=== PATIENT | male | born 1945 | race American Indian/Alaskan Native ===

== ENCOUNTER 2021-11-26 07:53 | Day surgery (SDC) | payer MEDICARE, OTHER ==
[2021-11-26 08:44] LABS: Basophils # (Auto) 0.1 K/mm3 (0.0-0.1); Basophils % (Auto) 1.1 % (0.0-1.8); Eosinophils # (Auto) 0.1 K/mm3 (0.0-0.4); Hematocrit 43.8 % (35.5-45.6); Hemoglobin 14.1 gm/dl (11.8-15.2); Lymphocytes # (Auto) 1.3 K/mm3 (1.2-5.4); Lymphocytes % (Auto) 29.6 % (13.4-35.0); Mean Corpuscular HGB Conc 32 % (32-34); Mean Corpuscular Volume 88 fl (84-94); Monocytes # (Auto) 0.5 K/mm3 (0.0-0.8); Monocytes % (Auto) 10.9 % (0.0-7.3); Platelet Count 367 K/mm3 (140-440); Red Blood Count 4.99 M/mm3 (3.65-5.03); Red Cell Distribution Width 15.2 % (13.2-15.2)
--- NOTE | 2021-11-26 08:52 | Electrocardiograph Report ---
[facility] Test Date: 2021-11-26 Test Time: 08:40:00 Pat Name: SABINE BELLO Department: Room: Gender: M Seam Presser: GIANCARLO : 1945 Requested By: GURU FERRER Order Number: [id number] Reading MD: Tim Huber Measurements Intervals [place] Rate: 92 P: 48 IA: 161 QRS: -31 QRSD: 88 T: 41 QT: 339 QTc: 420 Interpretive Statements Sinus rhythm Left axis deviation No previous ECG available for comparison Electronically Signed On 11-26-2021 8:52:13 EST by Tim Huber
[2021-11-26 08:55] LABS: INR 0.92 (0.87-1.13)
[2021-11-26] MEDS ORDERED: SODIUM CHLORIDE 0.9% 500 ML 500 ML IV SCH (09:00)
[2021-11-26 09:09] LABS: BUN/Creatinine Ratio 15; Blood Urea Nitrogen 20 mg/dL (9-20); Hemolysis Index 90
[2021-11-26] MEDS ORDERED: HEPARIN/NS 5000 UNIT/500ML 1,000 ML IR ONE (10:28)
[2021-11-26] MEDS ORDERED: HEPARIN 10,000 UNITS/10 ML VIAL ONE (10:28)
[2021-11-26] MEDS ORDERED: fentaNYL 100 MCG/2 ML INJ ONE (10:28)
[2021-11-26] MEDS ORDERED: MIDAZOLAM 2 MG/2 ML INJ ONE (10:28)
[2021-11-26] MEDS ORDERED: NITROGLYCERIN SYRINGE 3 ML ONE (10:29)
[2021-11-26] MEDS ORDERED: LIDOCAINE (2%) 20 MG/1 ML VIAL 20 ML MDV INFILTRATI ONE (10:29)
[2021-11-26] MEDS ORDERED: VERAPAMIL 5 MG/2 ML INJ ONE (10:29)
--- NOTE | 2021-11-26 11:30 | Cardiac Catherization Report ---
DATE OF SERVICE: 11/26/2021 CARDIAC CATHETERIZATION REASON FOR PROCEDURE: Abnormal stress test. PROCEDURES: 1. Left heart catheterization. 2. Selective left and right coronary angiography. 3. Left ventricular angiography. 4. Sedation time start 10:53, end 11:04. DESCRIPTION OF PROCEDURE: The patient was prepped and draped in a sterile fashion after informed consent. The right radial cath site was prepped and draped after negative Quincy's test. The right radial artery was entered using Seldinger technique followed by placement of a 6-Samo[place] hydrophilic sheath. Routine radial cocktail was administered via the sheath. Selective left and right coronary angiography was performed using #3.5 left Stevie and #4 right Stevie. The pigtail catheter was used for left ventricular angiography. The catheters were then removed, sheath removed and hemostasis achieved using a TR band. The patient was returned to the postprocedure unit in stable condition. There were no complications. HEMODYNAMICS: Left ventricular end-diastolic pressure was 16. Ascending aortic pressure 110/60. There was no significant pressure gradient on pullback across the aortic valve. CORONARY ANGIOGRAPHY: The left main coronary artery contained mild luminal irregularities and mild distal narrowing. The left anterior descending artery was notable for mild diffuse calcification of its proximal and mid segments, associated with mild diffuse atherosclerosis. No significant obstructive lesions were noted in either the LAD or its diagonal branches. The circumflex artery was a large system, codominant with the right coronary artery. This vessel and its obtuse marginal and posterior left ventricular branches were free of significant disease. The right coronary artery was a smaller caliber vessel, but terminated in a small posterior descending artery. There was mild diffuse atherosclerosis. We did note a 30-40% stenosis of the mid vessel. There is normal left ventricular systolic function, ejection fraction 60%. CONCLUSION: 1. Mild nonobstructive atherosclerosis as detailed above. No significant obstructive coronary lesions. 2. Well preserved left ventricular systolic function, ejection fraction 60%. RECOMMENDATIONS: Risk factor modification and medical therapy. TID: [id number] RECEIPT: [id number] VANDANA/TYRONE
[2021-11-26] MEDS ORDERED: traMADol 50 MG TAB PO PRN (12:19)
--- NOTE | 2021-11-26 12:21 | Discharge Summary ---
Short Stay Discharge Plan Activity: advance as tolerated Weight Bearing Status: Full Weight Bearing Diet: low fat, low cholesterol, low salt, diabetic Wound: keep clean and dry Special Instructions: no heavy lifting (3 days), hold Metformin (48-hours) Follow up with: TRACI MENDOZA MD [Staff Physician] - 7 Days [facility]
[2021-11-26] MEDS ORDERED: SODIUM CHLORIDE 0.9% 1000 ML 1,000 ML IV SCH (13:30)
[2021-11-26 15:02] VITALS: BP 132/70
== END 2021-11-26 15:45 | disposition home or self-care (01) ==
LOC: CATHLABREC 07:53
PROVIDERS: ATTEND Internal Medicine Cardiovascular Disease
DX: R94.39 Abnormal result of other cardiovascular function study (principal); K21.9 Gastro-esophageal reflux disease without esophagitis; M19.90 Unspecified osteoarthritis, unspecified site; Z80.8 Family history of malignant neoplasm of other organs or systems; Z87.891 Personal history of nicotine dependence; Z88.0 Allergy status to penicillin; Z79.899 Other long term (current) drug therapy; Z79.82 Long term (current) use of aspirin; Z98.890 Other specified postprocedural states
CPT/HCPCS: 36415; 80048; 85025; 85610; 93005; 93010; 93458; 99156; C1894; J1644; J1815; J2250; J3010; J3490; J7040; Q9967